=== PATIENT | male | born 1990 | race Caucasian/White ===

== ENCOUNTER → 2020-06-30 | Outpatient (CLI) | payer MEDICAID ==
[~2020-06-30] MED LIST: ALPR-394 PO; HYDR-3281 PO; TOPUD PO
== END | disposition home or self-care (01) ==
LOC: LAB 12:19
DX: Z01.812 Encounter for preprocedural laboratory examination (principal); Z20.828 Contact with and (suspected) exposure to other viral communicable diseases
CPT/HCPCS: 87635

== ENCOUNTER 2020-07-04 05:27 | Day surgery (SDC) | payer MEDICAID ==
[~2020-07-04] VITALS: Ht 170.2 cm; Wt 68.0 kg
[2020-07-04] MEDS ORDERED: LACTATED RINGERS 1,000 ML IV SCH (06:10)
[2020-07-04 06:12] LABS: BASOPHILS % 0.5 % (0.0-2.0); EOSINOPHILS % 1.8 % (0.0-5.0); HEMATOCRIT. 44.6 % (42.0-52.0); LYMPHOCYTES % 23.8 % (20.0-50.0); MEAN CORPUSCULAR HEMOGLOBIN 32.5 pg (28.0-32.0); MEAN PLATELET VOLUME 9.9 fl (7.4-10.4); MONOCYTES % 6.7 % (2.0-8.0); NEUTROPHILS % 67.2 % (40.0-76.0); PLATELET 197 x1000/uL (130-400); RED BLOOD CELL COUNT 4.91 mill/uL (4.7-6.1); RED CELL DISTRIBUTION WIDTH 12.8 % (11.6-14.6)
[2020-07-04 06:18] LABS: CHLORIDE 106 mEq/L (98-107)
[2020-07-04] MEDS ORDERED: HYDR-3281 PO (06:26)
[2020-07-04] MEDS ORDERED: TOPUD PO (06:26)
[2020-07-04] MEDS ORDERED: ALPR-394 PO (06:26)
[2020-07-04] MEDS ORDERED: BACITRACIN 50,000 UNITS/VIAL ONE (06:43)
[2020-07-04] MEDS ORDERED: BUPIVACAINE HCL/PF 0.25% (2.5MG/ML) 10ML ONE (06:43)
[2020-07-04] MEDS ORDERED: VANCOMYCIN HCL 1 GM/VIAL ONE (06:45)
[2020-07-04] MEDS ORDERED: BUPIVACAINE HCL/EPINEPHRINE/PF 0.5%/0.0005 10ML ONE (06:45)
[2020-07-04 06:55] LABS: PARTIAL THROMBOPLASTIN TIME 29.5 sec (23.4-31.0); PROTHROMBIN TIME 10.3 sec (9.6-11.0)
[2020-07-04 07:17] LABS: CLARITY URINE CLEAR (CLEAR); COLOR URINE YELLOW (YELLOW); KETONES URINE NEGATIVE (NEGATIVE); LEUKOCYTE ESTERASE URINE NEGATIVE (NEGATIVE); NITRITE URINE NEGATIVE (NEGATIVE); OCCULT BLOOD URINE NEGATIVE (NEGATIVE); PROTEIN URINE NEGATIVE (NEGATIVE); SPECIFIC GRAVITY URINE 1.018 (1.005-1.030); UROBILINOGEN URINE 0.2 E.U./dL (0.2-1.0)
[2020-07-04] MEDS ORDERED: ROPIVACAINE HCL 10MG/ML 20 ML VIAL EPI ONE ×3 (07:31→10:12)
[2020-07-04] MEDS ORDERED: PROPOFOL 200MG/20ML VIAL IV ONE ×2 (07:33→10:55)
[2020-07-04] MEDS ORDERED: MIDAZOLAM HCL 2 MG/2 ML VIAL ONE ×2 (07:33→10:55)
[2020-07-04] MEDS ORDERED: FENTANYL CITRATE/PF 50MCG/ML 2ML VIAL ONE (07:33)
[2020-07-04] MEDS ORDERED: LIDOCAINE HCL/PF 1% 10 MG/ML 5ML VIAL ONE (07:34)
[2020-07-04] MEDS ORDERED: CEFAZOLIN SODIUM 1000MG/VIAL ONE (07:34)
[2020-07-04] MEDS ORDERED: ROCURONIUM BROMIDE 10MG/ML VIAL 5ML IV ONE (07:34)
[2020-07-04] MEDS ORDERED: SUCCINYLCHOLINE CHLORIDE 200MG/10ML IV ONE (08:29)
[2020-07-04] MEDS ORDERED: ONDANSETRON HCL 4MG/2ML INJ ONE (09:16)
[2020-07-04] MEDS ORDERED: MEPERIDINE HCL/PF 25MG/ML CPJ IV PRN (10:15)
[2020-07-04] MEDS ORDERED: ONDANSETRON HCL 4MG/2ML INJ IV PRN (10:15)
[2020-07-04] MEDS ORDERED: HYDROMORPHONE HCL/PF 2MG/ML CPJ IV PRN (10:15)
[2020-07-04] MEDS ORDERED: HYDROCODONE/ACETAMINOPHEN 10/325MG TABLET PO PRN ×2 (11:00→12:15)
[2020-07-04] MEDS: FENTANYL CITRATE/PF 50MCG/ML 2ML VIAL IV PRN ×3 (12:02→12:27)
[2020-07-04 12:31] VITALS: BP 124/58
== END 2020-07-04 13:35 | disposition home or self-care (01) ==
LOC: OR 05:27 → EDUNIT# 07:30 → EDSTATUS 07:30 → OR 13:35
PROVIDERS: ATTEND Orthopaedic Surgery
DX: S42.032A Displaced fracture of lateral end of left clavicle, initial encounter for closed fracture (principal); F41.9 Anxiety disorder, unspecified; F43.10 Post-traumatic stress disorder, unspecified; F17.210 Nicotine dependence, cigarettes, uncomplicated; Z79.1 Long term (current) use of non-steroidal anti-inflammatories (NSAID); X58.XXXA Exposure to other specified factors, initial encounter; Y93.89 Activity, other specified; Y92.89 Other specified places as the place of occurrence of the external cause; Y99.8 Other external cause status
CPT/HCPCS: 23515; 36415; 64450; 71045; 73000; 80048; 81003; 85025; 85610; 85730; 86850; 86870; 86900; 86901; 93005; 97166; J0171; J0330; J0690; J2250; J2405; J2704; J2795; J3010; J3370; J3490; 76000; A4565